=== PATIENT | female | born 1940 | race Caucasian/White ===

== ENCOUNTER → 2018-10-05 15:48 | Outpatient (CLI) | payer OTHER, SELFPAY ==
--- NOTE | 2018-10-05 | DI.MRI.S_ITS ---
PROCEDURE: MR CERVICAL SPINE WO CON INDICATIONS: Unspecified abnormalities of gait and mobility TECHNIQUE: Noncontrast sagittal T1 spin echo and T2 fast spin echo, sagittal STIR, foraminal oblique sagittal T2 fast spin echo, and axial gradient echo or T2 fast spin echo through the cervical spine. COMPARISON: [facility], MR, MR HEAD/BRAIN WO/W CON, 10/05/2018, 15:56. FINDINGS: Image quality: Excellent. Alignment and Curvature: There is straightening of the normal cervical lordosis. No focal AP alignment abnormality is seen. Bone Marrow: Marrow demonstrates normal overall signal. Spinal Cord: Visualized spinal cord has normal size and signal. No cerebellar tonsillar herniation. Paraspinous Soft Tissues: No paravertebral masses. Prevertebral soft tissues are normal in thickness. C2-C3: The disc height is well-preserved. Loss of disc signal is seen at this level. Mild to moderate disc osteophyte complex is seen. There is moderate left-sided and no right-sided neural foraminal narrowing seen. There is moderate right-sided and moderate to severe left-sided neural narrowing seen. Mild central canal narrowing is seen. C3-C4: The disc height is well-preserved. Loss of disc signal is seen at this level. A mild degree of generalized disc osteophyte complex is seen. Moderate to severe right-sided and moderate left-sided facet hypertrophy is seen. There is moderate to severe bilateral neural foraminal narrowing seen, left worse than right. Moderate central canal narrowing is seen. There is associated mass effect upon the ventral spinal cord. C4-C5: Mild loss of disc height is seen. Loss of disc signal is seen. Moderate disc osteophyte complex is seen, which is eccentric to the left. There is moderate right-sided and moderate to severe left-sided facet hypertrophy seen. Moderate to severe bilateral neural foraminal narrowing is seen, left worse than right. Moderate to severe central canal narrowing is seen, with mass effect upon the ventral spinal cord. C5-C6: Moderate loss of disc height is seen. Loss of disc signal is seen. At least moderate disc osteophyte complex is seen. Uncovertebral joint hypertrophy is seen at this level. Moderate facet joint hypertrophy is seen. There is moderate to severe bilateral neural foraminal narrowing seen at this level. Moderate to severe central canal narrowing is seen, with ventral cord flattening. C6-C7: Moderate loss of disc height is seen. Loss of disc signal is seen. Moderate disc osteophyte complex is seen, which is eccentric to the left. Uncovertebral joint hypertrophy is seen at this level. Mild to moderate facet hypertrophy is seen. There is moderate to severe bilateral neural foraminal narrowing seen, left worse than right. Mild to moderate central canal narrowing is seen. C7-T1: Mild loss of disc height is seen. Loss of disc signal is seen. Mild disc osteophyte complex is seen, which is eccentric to the left. There is mild left-sided and no right-sided neural foraminal narrowing seen. No significant central canal narrowing is seen. IMPRESSION: Multiple levels of cervical spine degenerative change are seen, which are most prominent at C5-C6. Dictated by: Miguelito Rodríguez M.D. on 10/05/2018 at 17:14 Approved by: Miguelito Rodríguez M.D. on 10/05/2018 at 17:19
--- NOTE | 2018-10-05 | DI.MRI.S_ITS ---
PROCEDURE: MR HEAD/BRAIN WO/W CON INDICATIONS: Unspecified abnormalities of gait and mobility TECHNIQUE: Noncontrast axial T1 spin echo, axial T2 fast spin echo, sagittal and axial FLAIR, coronal T2 fast spin echo, axial gradient echo, axial diffusion and ADC through the brain. After the administration of contrast, axial and coronal T1 spin echo with fat saturation through the brain. COMPARISON: [facility], MR, MR CERVICAL SPINE WO CON, 10/05/2018, 15:57. FINDINGS: Image quality: Excellent. CSF spaces: Basal cisterns are patent. No extra-axial fluid collections. Ventricles are normal in size and shape. Brain: No midline shift. No intracranial bleeds or masses. No abnormal intracranial enhancement. There is cerebral volume loss for age. There is periventricular white matter chronic small vessel ischemic change. The brainstem appears normal. Diffusion-weighted images demonstrate no acute ischemic insults. No chronic ischemic insults. Normal intravascular flow voids are present. Skull and face: Calvarial marrow is normal in signal. Orbits appear normal. Sinuses: Sinuses and mastoids appear clear. IMPRESSION: Note is made of age-appropriate brain parenchymal volume loss and chronic small vessel ischemic changes. No findings of acute or subacute infarction can be seen. No masses or abnormal enhancement can be seen. Dictated by: Miguelito Rodríguez M.D. on 10/05/2018 at 17:13 Approved by: Miguelito Rodríguez M.D. on 10/05/2018 at 17:14
== END ==
PROVIDERS: PCP Family Medicine; Visit Provider Psychiatry & Neurology Neurology
DX: R26.9 Unspecified abnormalities of gait and mobility (principal); M47.812 Spondylosis without myelopathy or radiculopathy, cervical region
CPT/HCPCS: 70553; 72141

== ENCOUNTER → 2019-03-08 09:44 | Outpatient (CLI) | payer OTHER, SELFPAY ==
--- NOTE | 2019-03-08 | DI.MRI.S_ITS ---
PROCEDURE: MR LUMBAR SPINE WO CON INDICATIONS: symptoms and signs involving the musculoskelatal TECHNIQUE: Noncontrast sagittal T1 spin echo and T2 fast echo, sagittal STIR, axial T1 and T2 fast spin echo through the lumbar spine. In cases with scoliosis, additional coronal T2 fast spin echo may be performed. COMPARISON: None. FINDINGS: Image quality: There are motion artifacts. Alignment and Curvature: There is grade 1 anterolisthesis of L2 on L3 and grade 1 retrolisthesis of L3 on L4. Bone Marrow: Marrow is of normal overall signal. No acute vertebral body compression fractures. Spinal Cord: Conus medullaris terminates at the T12-L1 level. Visualized cord demonstrates normal signal and size. Paraspinous Soft Tissues: No paravertebral masses. L1-L2: Preserved disc height. Mild disc desiccation. There is mild posterior disc bulge. The central canal is patent. No foraminal stenosis. No definitive nerve root impingement. L2-L3: Moderate loss of disc height and disc desiccation. There is diffuse circumferential disc bulge and large posterior disc osteophyte complex. Moderate bilateral facet arthropathy and mild hypertrophy of ligamentum flavum. The central canal is moderately narrowed. Mild/moderate bilateral foraminal stenosis. No definitive nerve root impingement. L3-L4: Severe loss of disc height and disc desiccation. There is diffuse posterior disc bulge and large posterior disc osteophyte complex. Superimposed right posterior paramedian disc protrusion. Moderate bilateral facet arthropathy and mild hypertrophy of ligamentum flavum. The central canal is moderately narrowed. Moderate to severe right and mild left foraminal stenosis. Probable right L4 nerve root impingement. L4-L5: Mild loss of disc height. Moderate disc desiccation. There is diffuse posterior disc bulge and large posterior disc osteophyte complex. Severe left and moderate right facet arthropathy. The central canal is mildly narrowed. Mild bilateral foraminal stenosis. No definitive nerve root impingement. L5-S1: Preserved disc height. Mild disc desiccation. There is mild posterior disc bulge. Severe bilateral facet arthropathy. The central canal is patent. No foraminal stenosis. No definitive nerve root impingement. IMPRESSION: 1. Multilevel degenerative disc disease and facet arthropathy in lumbar spine as described. 2. Moderate central canal stenosis at L2-L3 and L3-L4. 3. Multilevel foraminal stenosis as described. Dictated by: Arpan Lau M.D. on 03/08/2019 at 12:00 Approved by: Arpan Lau M.D. on 03/08/2019 at 12:09
== END ==
PROVIDERS: PCP Family Medicine; Visit Provider Physical Medicine & Rehabilitation
DX: R29.898 Other symptoms and signs involving the musculoskeletal system (principal); M51.36 Other intervertebral disc degeneration, lumbar region; M51.37 Other intervertebral disc degeneration, lumbosacral region; M47.816 Spondylosis without myelopathy or radiculopathy, lumbar region; M47.817 Spondylosis without myelopathy or radiculopathy, lumbosacral region; M48.061 Spinal stenosis, lumbar region without neurogenic claudication
CPT/HCPCS: 72148

== ENCOUNTER 2019-05-17 09:34 | Outpatient (CLI) | payer OTHER, SELFPAY ==
[2019-05-17] VITALS (8 sets, daily range): BP systolic 108–158; BP diastolic 62–74; PULSE 59–69; RESP 14–16; TEMP 35.9; O2SAT 93–99
--- NOTE | 2019-05-17 09:36 | DI.RAD.S_ITS ---
PROCEDURE: PAIN C/T INTERLAMINAR INJECT INDICATIONS: SPONDYLOSIS FINDINGS: Fluoroscopic spot filming was performed to verify placement of spinal needles at the C6-C7 level(s), as labeled on the films. Appropriate location(s) of the needle tip(s) was confirmed by injection of iodinated contrast. IMPRESSION: Fluoroscopy for pain management. Dictated by: Arpan Lau M.D. on 05/17/2019 at 11:17 Approved by: Arpan Lau M.D. on 05/17/2019 at 11:18
[2019-05-17] MEDS: MIDAZOLAM 5 MG/5 ML VIAL IV (10:35)
[2019-05-17] MEDS: IOPAMIDOL 15 ML VIAL 3 ML INJ (10:39)
[2019-05-17] MEDS: LIDOCAINE 1% 20 ML 5 ML INJ (10:40)
[2019-05-17] MEDS: DEXAMETHASONE 10 MG/ML VIAL 30 MG INJ (10:40)
--- NOTE | 2019-05-17 10:55 | PM.PROC.1 ---
Procedures Date/Time Date of procedure: 05/17/19 Time of procedure: 11:05 General Procedure description: PREOP DIAGNOSIS 1. CERVICAL STENOSIS, 2. CERVICAL HNP WITH UPPER EXTREMITY RADICULAR FEATURES, POST OP DIAGNOSIS 1. CERVICAL STENOSIS, 2. CERVICAL HNP WITH UPPER EXTREMITY RADICULAR FEATURES, PROCEDURES 1. FLUORSCOPICALLY GUIDED CONTRAST CONTROLLED INTERLAMINAR EPIDURAL STEROID INJECTION - C6/7 TL [facility] PHYSICIAN: Rashad Trammell, DO INDICATIONS Mandi is referred by Dr. Erickson for treatment of Cervical HNP with Upper Extremity Paresthesias. FINDINGS Cervical Stenosis due to disc deterioration and nerve root irritation and nerve root irritation DESCRIPTION OF PROCEDURE Fluoroscopically guided, contrast-controlled C6/7 translaminar epidural steroid injection with conscious sedation. Following review of allergy and review of potential side effects and complications, including, but not necessarily limited to, infection, allergic reaction, local tissue breakdown, temporary as well as permanent nerve injury, stroke, paralysis, and possible , the patient indicated that patient understood and agreed to proceed. An informed consent document was signed by the patient, witnessed by a nurse, and placed in the patient's chart. Additionally, other treatment options including modalities, medications, and physical therapy were reviewed with the patient. After review of previous anaesthesic history and IV conscious sedation the patient was deemed safe to proceed with todays procedure with IV conscious sedation as ASA class II designation. Safety time-out was performed to confirm patient ID, procedure to be performed and site of procedure. IV sedation was accomplished with a combination of 2mg of Versed administered by the RN after DO order, titrated to patient comfort during the course of the procedure while the patient remained responsive to all verbal commands. In the prone position, following sterile prep and drape of the cervical region, the C6/7 translaminar space was identified fluoroscopically. The skin was anesthetized via a 25-gauge 1.5-inch needle with 1% lidocaine solution. At this point, a 25-gauge, 2.5-inch short bevel spinal needle was atraumatically introduced and advanced under fluoroscopic guidance into epidural space at the C6/7 translaminar space. Depth was confirmed on lateral view. Radiological data, including multiple fluoroscopic views of the cervical spine, reveal a spinal needle at the C6/7 translaminar space. Lateral views then show placement of the needle in the epidural space. Subsequent views show contrast material flowing superiorly and inferiorly in the epidural space. DSA fluoroscopy with live contrast injection, once again, confirmed no vascular or intrathecal uptake. At this point, using loss of resistance technique with saline and air, the epidural space was entered. Following negative aspiration, injection of approximately 1.5 cc of Isovue-200 with live fluoroscopy in the AP view confirmed epidural flow in the epidural space without vascular or intrathecal uptake observed. Subsequently, a test dose of 1 cc of 1% lidocaine solution was injected and patient was observed for two minutes without signs or symptoms of complications, including abdominal pain, shortness of breath, bilateral upper or lower extremity weakness, nausea and vomiting, prior to steroid injection. At this point, 2cc or 20mg of dexamethasone was then injected without incident. The patient tolerated the procedure well without signs or symptoms of complications prior to being transferred to the recovery area for further monitoring, The patient was then transferred to the recovery area where they were observed for an appropriate period of time after the injection. The patient reported a VAS score of 6 prior to the procedure and a post-procedure VAS of 0. Total Fluoroscopy Time: 37.0 seconds Total Conscious Time: 24min POST OP INSTRUCTIONS The patient was provided a Pain Log to continue to record their response to the target-specific procedure prior to follow-up visit with the referring provider. Additionally, specific post-injection care instructions and a contact number to our office were provided if concerns arise regarding possible complications associated with the procedure are suspected. Rashad Trammell, Complications: none
--- NOTE | 2019-05-17 10:56 | PC.NURSE ---
DI note: Received patient post procedure, awake and calm. Up out of WC to chair in stable condition.
--- NOTE | 2019-05-17 17:18 | PC.NURSE ---
Late entry--Post procedure transfer note: Time out at 1033. Patient medicated per providers orders. Patient tolerated procedure well with minimal discomfort. VSS and O2 Sat stable througout. Able to sit up and transfer to wheelchair with stand by assist. Hand off report given to Efe Hernández RN. Transferred from w/c to recliner independently. Pain level 0/10
== END 2019-05-17 11:30 | disposition home or self-care (01) ==
PROVIDERS: PCP Family Medicine; Visit Provider Physical Medicine & Rehabilitation
DX: M48.02 Spinal stenosis, cervical region (principal); M50.123 Cervical disc disorder at C6-C7 level with radiculopathy; R20.2 Paresthesia of skin
CPT/HCPCS: 62321; 99152; J1100; J2250; J3010

== ENCOUNTER → 2019-07-05 15:02 | Outpatient (CLI) | payer MEDICARE, SELFPAY ==
--- NOTE | 2019-07-05 | DI.MRI.S_ITS ---
PROCEDURE: MR CERVICAL SPINE WO CON INDICATIONS: Spinal stenosis, cervical region TECHNIQUE: Noncontrast sagittal T1 spin echo and T2 fast spin echo, sagittal STIR, foraminal oblique sagittal T2 fast spin echo, and axial gradient echo or T2 fast spin echo through the cervical spine. COMPARISON: [facility], MR, MR CERVICAL SPINE WO CON, 10/05/2018, 15:57. FINDINGS: Image quality: Excellent. Alignment and Curvature: There is trace C4-C5 anterolisthesis. Bone Marrow: Mild reactive endplate changes noted adjacent to the C5-C6 disc. Spinal Cord: Visualized spinal cord has normal size and signal. No cerebellar tonsillar herniation. Paraspinous Soft Tissues: No paravertebral masses. Prevertebral soft tissues are normal in thickness. C2-C3: Loss of disc signal. Mild right and moderate left facet hypertrophy. No central stenosis. Moderate right and severe left neural foraminal narrowing with compression of the exiting left C3 nerve root. C3-C4: Loss of disc signal and slight loss of disc height. Mild, diffuse disc bulge. Severe bilateral facet hypertrophy. Moderate right and severe left neural foraminal narrowing with compression of the exiting left C4 nerve root. C4-C5: Loss of disc signal. Mild to moderate diffuse disc bulge. Moderate narrowing of the central canal. Mild right and moderate left facet hypertrophy. Moderate bilateral uncovertebral joint hypertrophy. Severe bilateral neural foraminal narrowing with compression of the exiting C5 nerve roots. C5-C6: Loss of disc signal and height. Moderate, diffuse disc bulge. Severe narrowing of the central canal with slight compression of the cervical spinal cord. Mild bilateral facet hypertrophy. Moderate bilateral uncovertebral joint hypertrophy. Severe bilateral neural foraminal narrowing with compression of the exiting C6 nerve roots. C6-C7: Loss of disc signal. Mild, diffuse disc bulge. Mild narrowing of the central canal. Mild bilateral facet hypertrophy. Mild bilateral uncovertebral joint hypertrophy. Severe bilateral neural foraminal narrowing with compression of the exiting C7 nerve roots. C7-T1: Loss of disc signal. Minimal, diffuse disc bulge. No central stenosis. No neural foraminal narrowing. No neural compression. IMPRESSION: 1. Multilevel degenerative disc disease. 2. Multilevel facet and uncovertebral arthropathy. 3. Severe C5-C6 Central canal narrowing with slight compression of the cervical spinal cord. 4. Severe left C2-C3 and C3-C4 neural foraminal narrowing with compression of the exiting left C3 nerve root and the exiting left C4 nerve root. Severe bilateral C4-C5, C5-C6 and C6-C7 neural foraminal narrowing with compression of the exiting bilateral C5 nerve roots, exiting bilateral C6 nerve roots and exiting bilateral C7 nerve roots. Dictated by: Dagmar Lagunas MD, PhD on 07/05/2019 at 17:09 Approved by: Dagmar Lagunas MD, PhD on 07/05/2019 at 17:43
== END ==
PROVIDERS: PCP Family Medicine; Visit Provider Neurological Surgery
DX: M48.02 Spinal stenosis, cervical region (principal); M50.31 Other cervical disc degeneration, high cervical region; M47.812 Spondylosis without myelopathy or radiculopathy, cervical region
CPT/HCPCS: 72141

== ENCOUNTER 2019-08-14 09:30 | Outpatient (CLI) | payer MEDICARE, SELFPAY ==
[2019-08-14] VITALS (8 sets, daily range): BP systolic 112–169; BP diastolic 63–100; PULSE 54–67; RESP 16–18; TEMP 36.5; O2SAT 94–99
--- NOTE | 2019-08-14 09:32 | DI.RAD.S_ITS ---
PROCEDURE: PAIN L/S TRANSFORAMINAL INJECT INDICATIONS: INTERVERTEBRAL DISC DISPLACEMENT FINDINGS: Fluoroscopic spot filming was performed to verify placement of spinal needles at the L3-L4 level(s), as labeled on the films. Appropriate location(s) of the needle tip(s) was confirmed by injection of iodinated contrast. Dictated by: Keith Casillas M.D. on 08/14/2019 at 12:07 Approved by: Keith Casillas M.D. on 08/14/2019 at 12:11
[2019-08-14] MEDS: fentaNYL 100 MCG/2 ML INJ 50 MCG IV (10:26)
[2019-08-14] MEDS: MIDAZOLAM 5 MG/5 ML VIAL IV (10:26)
[2019-08-14] MEDS: DEXAMETHASONE 10 MG/ML VIAL 20 MG INJ (10:31)
[2019-08-14] MEDS: BETAMETHASONE 30 MG/5 ML MDV 6 MG INJ (10:31)
[2019-08-14] MEDS: IOPAMIDOL 15 ML VIAL 3 ML INJ (10:31)
--- NOTE | 2019-08-14 10:35 | PM.PROC.1 ---
Procedures Date/Time Date of procedure: 08/14/19 Time of procedure: 10:35 General Procedure description: PROVIDER: Rashad Trammell DO Operative Note PREOP DIAGNOSIS 1. FORAMINAL STENOSIS WITH LE SYMPTOMS, POST OP DIAGNOSIS 1. FORAMINAL STENOSIS WITH LE SYMPTOMS, PROCEDURES 1. FLUOROSCOPICALLY GUIDED CONTRAST CONTROLLED TRANSFORAMINAL EPIDURAL STEROID INJECTION - RIGHT L3/4 TFESI SURGEON: Rashad Trammell, INDICATIONS Mandi is referred by Dr. Erickson for treatment of Foraminal Stenosis with right LE Symptoms FINDINGS Foraminal Nerve Root Compression secondary to disc disease and facet hypertrophy DESCRIPTION OF PROCEDURE Following review of allergy and review of potential side effects and complications, including, but not necessarily limited to, infection, allergic reaction, local tissue breakdown, stroke, temporary or permanent nerve injury, paralysis, and possible , the patient indicated that the patient understood and agreed to proceed. An informed consent document was signed by the patient, witnessed by a nurse, and placed in the patient's chart. Additionally, other treatment options including medications, modalities, and physical therapy were reviewed with the patient. After review of previous anaesthesic history and IV conscious sedation the patient was deemed safe to proceed with todays procedure with IV conscious sedation as ASA class II designation. Safety time-out was performed to confirm patient ID, procedure to be performed and site of procedure. IV sedation was accomplished with a combination of 2mg of Versed and 50mcg of Fentanyl was administered by the RN after DO order, titrated to patient comfort during the course of the procedure while the patient remained responsive to all verbal commands In the prone position following sterile prep and drape of the lumbar region, the right L3/4 posterior neuroforamen was identified fluoroscopically. The skin was anesthetized via a 25-gauge 1.5-inch needle with 1% lidocaine solution. At this point, a 25-gauge 3.5-inch spinal needle was atraumatically introduced and advanced under fluoroscopic guidance through the posterior right L3/4 neuroforamen to approximately the anterior aspect of the canal. Depth was confirmed on lateral view. Following negative aspiration, injection of approximately 1.5 cc of Isovue 200 under live fluoroscopy in the AP view confirmed excellent flow along the nerve root, into the epidural space without vascular or intrathecal uptake observed Radiological data, including multiple fluoroscopic views of the lumbosacral spine, reveal a spinal needle at the right L3/4 posterior neuroforamen. Subsequent views show flow of contrast material flowing superiorly and inferiorly along the nerve root confirming epidural flow. Subsequently, a test dose of 1.5 cc of 0.25% marcaine solution was administered and patient was observed for two minutes for signs or symptoms of complications, including abdominal pain, shortness of breath, bilateral upper or lower extremity weakness, nausea and vomiting, prior to steroid injection. At this point, a total of 3cc or 20mg of dexamethasone and 6mg of betamethasone was injected without incident. The patient tolerated the procedure well without signs or symptoms of complications prior to transfer to the recovery area continued monitoring without incident. The patient was then transferred to the recovery area where they were observed for an appropriate time after the injection. The patient reported a VAS score of 7 prior to the procedure and a post-procedure VAS of 0. Total Fluoroscopy Time: 8 seconds Total Conscious Sedation Time: 24 min POST OP INSTRUCTIONS The patient was provided a Pain Log to continue to record their response to the target-specific procedure prior to follow-up visit with their referring physician. Additionally, specific post-injection care instructions and a contact number to our office were provided if concerns arise regarding possible complications associated with the procedure are suspected. Rashad Trammell, Complications: none
--- NOTE | 2019-08-14 10:48 | PC.NURSE ---
ACCEPTED CARE OF PT IN POST PROC AREA IN STABLE CONDITION. AT 1047.
--- NOTE | 2019-08-14 11:30 | PC.NURSE ---
at 1035 able to sit,stand,transfer self to w/c with 2 assist, pain free, transfer care to tina swanson.
== END 2019-08-14 11:52 | disposition home or self-care (01) ==
LOC: RAD 09:31
PROVIDERS: PCP Family Medicine; Referring Provider Physical Medicine & Rehabilitation; Visit Provider Physical Medicine & Rehabilitation
DX: M48.061 Spinal stenosis, lumbar region without neurogenic claudication (principal); M51.16 Intervertebral disc disorders with radiculopathy, lumbar region
CPT/HCPCS: 64483; 99152; J0702; J1100; J2250; J3010

== ENCOUNTER → 2020-07-04 09:44 | Outpatient (CLI) | payer MEDICARE, SELFPAY ==
--- NOTE | 2020-07-04 09:46 | DI.RAD.S_ITS ---
PROCEDURE: XR LUMBAR SPINE MIN 4V INDICATIONS: update imaging TECHNIQUE: 4 views of the lumbar spine were acquired. COMPARISON: None. FINDINGS: Bones: 5 nonrib-bearing vertebrae are present. There is normal bony alignment. No vertebral body compression fractures. No suspicious bony lesions. Note is made of moderately severe L3-4 degenerative disc disease and moderate L2-3 such change. There is mild degenerative disc disease above and below these levels. Soft tissues: Overlying bowel gas pattern is normal. No suspicious soft tissue calcifications. Oblique images: No pars defects. IMPRESSION: Overall there is moderate to moderately severe degenerative disc disease over the middle 3rd of the LS spine, and facet osteoarthritis becomes progressively more prominent from L3 inferiorly to the degree that spinal and foraminal stenosis likely is present at least at L2-L3 and L3-L4 and also possibly to a mild degree L5-S1. Dictated by: Armin Siegel M.D. on 07/04/2020 at 11:12 Approved by: Armin Siegel M.D. on 07/04/2020 at 11:13
== END ==
PROVIDERS: PCP Family Medicine; Referring Provider Physical Medicine & Rehabilitation; Visit Provider Physical Medicine & Rehabilitation
DX: M51.26 Other intervertebral disc displacement, lumbar region (principal); M51.36 Other intervertebral disc degeneration, lumbar region; M47.816 Spondylosis without myelopathy or radiculopathy, lumbar region; M47.812 Spondylosis without myelopathy or radiculopathy, cervical region; I44.7 Left bundle-branch block, unspecified; Z95.0 Presence of cardiac pacemaker
CPT/HCPCS: 72110; 99214

== ENCOUNTER 2020-07-24 13:30 | Outpatient (CLI) | payer MEDICARE, SELFPAY ==
[2020-07-24] VITALS (8 sets, daily range): BP systolic 113–194; BP diastolic 57–83; PULSE 59–73; RESP 13–21; TEMP 36.1; O2SAT 92–98
--- NOTE | 2020-07-24 13:33 | DI.RAD.S_ITS ---
PROCEDURE: PAIN L/S FACET INJ/BLK 1ST VINNY COMPARISON: [facility], , PAIN L/S TRANSFORAMINAL INJECT, 08/14/2019, 10:26. INDICATIONS: SPONDYLOSIS FINDINGS: Fluoroscopic spot filming was performed to verify placement of spinal needles at the L2-L3, L3-L4, and L4-L5 levels on both sides, as labeled on the films. Appropriate location of the needle tips was confirmed by injection of iodinated contrast. IMPRESSION: Intraprocedural examination within normal limits. Dictated by: Miguelito Rodríguez M.D. on 07/24/2020 at 15:01 Approved by: Miguelito Rodríguez M.D. on 07/24/2020 at 15:04
[2020-07-24] MEDS: MIDAZOLAM 5 MG/5 ML VIAL IV (14:22)
[2020-07-24] MEDS: fentaNYL 100 MCG/2 ML INJ 50 MCG IV (14:22)
[2020-07-24] MEDS: IOPAMIDOL 15 ML VIAL 3 ML INJ (14:28)
[2020-07-24] MEDS: BUPIVACAINE 0.5% (PF) VIAL 5 ML INJ (14:28)
[2020-07-24] MEDS: LIDOCAINE 1% 20 ML 10 ML INJ (14:28)
[2020-07-24] MEDS: BETAMETHASONE 30 MG/5 ML MDV 12 MG INJ (14:29)
--- NOTE | 2020-07-24 14:40 | P.PCN_ITS ---
Date/Time/Diagnoses Date of procedure: 07/24/20 Time of procedure: 14:40 Pre-procedure diagnosis: 1. FACET ARTHROPATHY 2. AXIAL LBP 3. MULTILEVEL DDD Post-procedure diagnosis: same Procedure Notes Procedure: 1. FLUORSCOPICALLY GUIDED CONTRAST CONTROLLED FACET JOINT INJECTIONS BILATERAL L2/3, L3/4, L4/5 Indications: Mandi is referred by Dr. Erickson for treatment of Axial LBP Physician: Rashad Trammell Total Fluoroscopy time (seconds): 15 Total sedation minutes: 12 Complications: none Procedure in detail & Post-procedure care: FINDINGS Multilevel Facet Arthropathy with Clinically significant axial LBP DESCRIPTION OF PROCEDURE Fluoroscopically guided, contrast-controlled bilateral L2/3, L3/4, L4/5 facet joint injections. Following review of allergy and review of potential side effects and complications, including, but not necessarily limited to, infection, allergic reaction, local tissue breakdown, stroke, temporary or permanent nerve injury, paralysis, and possible , the patient indicated that the patient understood and agreed to proceed. An informed consent document was signed by the patient, witnessed by a nurse, and placed in the patient's chart. Additionally, other treatment options including medications, modalities, and physical therapy were reviewed with the patient. After review of previous anaesthesic history and IV conscious sedation the patient was deemed safe to proceed with today's procedure with IV conscious sedation as ASA class II designation. Safety time-out was performed to confirm patient ID, procedure to be performed and site of procedure. IV sedation was accomplished with a combination of 3mg of Versed and 50mcg of Fentanyl was administered by the RN after DO order, titrated to patient comfort during the course of the procedure while the patient remained responsive to all verbal commands. In the prone position, following sterile prep and drape of the lumbar region, the posterior aspect of the L2/3, L3/4, L4/5 facet joints were identified fluoroscopically. The skin was anesthetized via a 25-gauge 1.5-inch needle with 1% lidocaine solution into the corresponding facet joints. At this point, a 22- gauge 3.5-inch spinal needle was atraumatically introduced and advanced under fluoroscopic guidance into the corresponding facet joints. Following negative aspiration, injections of approximately 0.2cc of Isovue 200 confirmed interarticular placement without vascular uptake. The identical procedure was then performed at the L2/3, L3/4, L4/5 facet joints on the left. Radiological data, including multiple fluoroscopic views of the lumbosacral spine, reveal a spinal needle at the L2/3, L3/4, L4/5 facet joints bilaterally. Subsequent views show flow of contrast material both superiorly and inferiorly within the joint space without vascular or intrathecal uptake. At this point, a total of 0.5cc including a mixture of 0.25cc Marcaine and 0.25cc betamethasone was injected without complication into each of the corresponding facet joints. The patient tolerated the procedure well without signs or symptoms of complications prior to transfer to the recovery area continued monitoring without incident. The patient was then transferred to the recovery area where they were observed for an appropriate period of time after the injection. The patient reported a VAS score of 7 prior to the procedure and a post-procedure VAS of 0. POST OP INSTRUCTIONS The patient was provided a Pain Log to continue to record their response to the target-specific procedure prior to follow-up visit with their referring physician. Additionally, specific post-injection care instructions and a contact number to our office were provided if concerns arise regarding possible complications associated with the procedure are suspected.
== END 2020-07-24 15:00 | disposition home or self-care (01) ==
PROVIDERS: PCP Family Medicine; Referring Provider Physical Medicine & Rehabilitation; Visit Provider Physical Medicine & Rehabilitation
DX: M47.816 Spondylosis without myelopathy or radiculopathy, lumbar region (principal); M51.26 Other intervertebral disc displacement, lumbar region
CPT/HCPCS: 64493; 64494; 64495; 99152; J0702; J2250; J3010

== ENCOUNTER 2021-04-09 11:06 | Outpatient (CLI) | payer MEDICARE, SELFPAY ==
[2021-04-09] VITALS (12 sets, daily range): BP systolic 100–206; BP diastolic 56–93; PULSE 57–87; RESP 11–30; TEMP 36.8; O2SAT 93–99
--- NOTE | 2021-04-09 11:07 | DI.RAD.S_ITS ---
PROCEDURE: PAIN L/S FACET INJ/BLK 1ST VINNY COMPARISON: [facility], , PAIN L/S FACET INJ/BLK 1ST VINNY, 07/24/2020, 14:26. INDICATIONS: SPONDYLOSIS IMPRESSION: Fluoroscopic spot filming was performed to verify placement of a spinal needles on both sides at the L2, L3, L4, and L5 levels, as labeled on the films. Appropriate location of the needle tips was confirmed by injection of iodinated contrast. IMPRESSION: Intraprocedural examination within normal limits. Dictated by: Miguelito Rodríguez M.D. on 04/09/2021 at 11:35 Approved by: Miguelito Rodríguez M.D. on 04/09/2021 at 11:35
[2021-04-09] MEDS: MIDAZOLAM 5 MG/5 ML VIAL IV (11:44)
[2021-04-09] MEDS: fentaNYL 100 MCG/2 ML INJ 50 MCG IV (11:44)
[2021-04-09] MEDS: IOPAMIDOL 15 ML VIAL 3 ML INJ (11:53)
[2021-04-09] MEDS: BUPIVACAINE 0.5% (PF) VIAL 5 ML INJ (11:54)
[2021-04-09] MEDS: LIDOCAINE 1% 20 ML 10 ML INJ (11:55)
--- NOTE | 2021-04-09 12:07 | PM.PROC.IR.1 ---
Date/Time/Diagnoses Date of procedure: 04/09/21 Time of procedure: 12:07 Pre-procedure diagnosis: 1. FACET ARTHROPATHY Post-procedure diagnosis: same Procedure Notes Procedure: 1. BILATERAL L2, L3, L4 AND L5 DIAGNOSTIC MB BLOCKS Indications: Mandi is referred by Dr. Erickson for treatment of Bilateral Axial LBP. Physician: Rashad Trammell Total Fluoroscopy time (seconds): 13 Total sedation minutes: 17 Complications: none Procedure in detail & Post-procedure care: DESCRIPTION OF PROCEDURE Fluoroscopically guided, contrast-controlled bilateral L2, L3, L4 AND L5 medial branch blocks with 0.5cc of 0.5% Marcaine. Following review of allergy and review of potential side effects and complications, including, but not necessarily limited to, infection, allergic reaction, local tissue breakdown, nerve injury, paralysis, stroke and possible , the patient indicated that the patient understood and agreed to proceed. An informed consent document was signed by the patient, witnessed by a nurse, and placed in the patient's chart. After review of previous anaesthesic history and IV conscious sedation the patient was deemed safe to proceed with today's procedure with IV conscious sedation as ASA class II designation. Safety time-out was performed to confirm patient ID, procedure to be performed and site of procedure. IV sedation was accomplished with a combination of 4mg of Versed and 50mcg of Fentantyl was administered by the RN after DO order, titrated to patient comfort during the course of the procedure while the patient remained responsive to all verbal commands In the prone position, following sterile prep and drape of the lumbar region, the right L2, L3, L4 AND L5 anatomical location of the medial branch of the dorsal ramus was identified fluoroscopically. Subsequently an anesthetic skin wheal using 1% lidocaine solution was initiated at each of the anatomical spots. Subsequently then a 22-gauge 3.5-inch spinal needle was atraumatically introduced and advanced under fluoroscopic guidance at each of the corresponding sites at the right L2, L3, L4 and L5 MB. After negative aspiration, 0.2cc of Isovue 200 was injected, confirming placement without vascular or intrathecal uptake. Subsequently then 0.5cc of 0.5% Marcaine solution was injected at each of the corresponding sites at the right L2,L3, L4 and L5 medial branch locations. The identical procedure was replicated on the left. The patient tolerated the procedure well without signs or symptoms of complications. The patient tolerated the procedure well without signs or symptoms of complications prior to transfer to the recovery area continued monitoring without incident. Post-procedure, the patient was monitored initiating provocative activities to measure the amount of relief from block of the facetogenic pain. The patient reported a VAS of 7 prior to the procedure and a post-procedure VAS of 1. It has been a pleasure to assist in the diagnostic and therapeutic care of your patient. POST OP INSTRUCTIONS The patient was provided with a Pain Log to complete over the next several hours and subsequent days prior to the patient's follow up with the ordering physician. If the patient has cake batter mixer relief to the solution applied, then they may be a candidate for medial branch rhizotomy. The patient is aware, was provided, once again, with a Pain Log and will follow up with the referring physician for review and clinical correlation
== END 2021-04-09 13:00 | disposition home or self-care (01) ==
PROVIDERS: PCP Family Medicine; Referring Provider Physical Medicine & Rehabilitation; Visit Provider Physical Medicine & Rehabilitation
DX: M47.816 Spondylosis without myelopathy or radiculopathy, lumbar region (principal); M54.59 Other low back pain
CPT/HCPCS: 64493; 64494; 64495; 99152; J2250; J3010

== ENCOUNTER 2021-07-09 10:25 | Outpatient (CLI) | payer MEDICARE, SELFPAY ==
[2021-07-09] VITALS (13 sets, daily range): BP systolic 109–180; BP diastolic 57–98; PULSE 49–60; RESP 13–20; TEMP 36.7; O2SAT 92–100
--- NOTE | 2021-07-09 10:27 | DI.RAD.S_ITS ---
PROCEDURE: PAIN L/S MED/LAT N RFA BILAT INDICATIONS: SPONDYLOSIS COMPARISON: [facility], XA, PAIN L/S FACET INJ/BLK 1ST VINNY, 04/09/2021, 11:49. [facility], XA, PAIN L/S FACET INJ/BLK 1ST VINNY, 07/24/2020, 14:26. FINDINGS: Fluoroscopic spot filming was performed to verify placement of spinal needles on on both sides at the L2, L3, L4, and L5, as labeled on the films. IMPRESSION: Intraprocedural examination within normal limits. Dictated by: Miguelito Rodríguez M.D. on 07/09/2021 at 12:42 Approved by: Miguelito Rodríguez M.D. on 07/09/2021 at 12:43
[2021-07-09] MEDS: fentaNYL 100 MCG/2 ML INJ 50 MCG IV (11:44)
[2021-07-09] MEDS: BUPIVACAINE 0.5% (PF) VIAL 5 ML INJ (11:49)
[2021-07-09] MEDS: LIDOCAINE 1% (PF) 5 ML INJ (11:49)
[2021-07-09] MEDS: MIDAZOLAM 5 MG/5 ML VIAL IV (12:10)
--- NOTE | 2021-07-09 12:39 | P.PCN_ITS ---
Date/Time/Diagnoses Date of procedure: 07/09/21 Time of procedure: 12:39 Pre-procedure diagnosis: 1. RECALCITRANT FACET ARTHROPATHY This procedure is found to meet the Governor's proclamation 20-24.2 regarding non urgent procedures. This patient meets multiple criteria for the procedure including continuing or worsening of significant or severe pain, combined with further deterioration of the patient's condition or overall health as well as delay in treatment would be expected to result in less positive ultimate medical outcome. Therefore the decision to perform the procedure in an outpatient hospital setting is found to be in accordance with guidelines of the proclamation. Post-procedure diagnosis: same Procedure Notes Procedure: 1. BILATERAL L2, L3, L4 AND L5 MEDIAL BRANCH RADIOFREQUENCY NEUROTOMY Indications: Mandi is referred by Dr. Erickson for treatment of facet arthropathy. Physician: Rashad Trammell Total Fluoroscopy time (seconds): 20 Total sedation minutes: 46 Complications: none Procedure in detail & Post-procedure care: DESCRIPTION OF PROCEDURE Bilateral L2, L3, L4 and L5 medial branch radiofrequency neurotomy The patient is well known to this clinic having undergone previous facet injections with good but temporary relief. The patient has experienced appropriate, concordant relief with previous facet and median branch blocks but the patient's pain has been recalcitrant to further conservative measures. Therefore, based upon the patient's relief and persistent symptoms, the patient is considered an appropriate candidate for facet rhizotomy. All of the patient's questions regarding the risks versus benefits of the procedure, including, but not limited to, bleeding, infection, temporary as well as lasting nerve injury, paralysis, stroke, and , as well treatment alternatives were answered to satisfaction. After obtaining informed consent, denial of pertinent drug allergies, as well as being made aware of the potential risks of bleeding, infection, spinal cord trauma, paralysis, temporary and permanent nerve damage, seizure, stroke, and possible , the patient was brought to the fluoroscopy suite and positioned prone on the fluoroscopy table. The lumbar region was prepped with Betadine and covered with a fenestrated drape in the usual sterile fashion. Appropriate monitors applied including pulse oximeter, pulse, and blood pressure for regular monitoring throughout the procedure. After review of previous anaesthesic history and IV conscious sedation the patient was deemed safe to proceed with today's procedure with IV conscious sedation as ASA class II designation. Safety time-out was performed to confirm patient ID, procedure to be performed and site of procedure. IV sedation was accomplished with a combination of 2mg of Versed and 50mcg of Fentanyl administered by the RN after DO order, titrated to patient comfort during the course of the procedure while the patient remained responsive to all verbal commands. After local infiltration using 1% lidocaine, under fluoroscopic guidance, a 10- cm RF insulated needle with a 10-mm active tip was positioned parallel to the junction of the right the superior articulating process where the L5 medial branch resides. Needle placement was confirmed with motor stimulation of .5v on the right which produced local stimulation without radicular component. The stimulation was then increased to 2v with, once again, only local multifidus stimulation without radicular component. The needle was then removed and the identical procedure was performed along the length of the right L4 medial branch with motor stimulation at .7v on the right. The identical procedure was once again performed along the length of the right L3 and medial branch with motor stimulation of .5v on the right. The identical procedure was once again performed along the length of the right L2 and medial branch with motor stimulation of .5v on the right.The medial branches were then anesthetised with 0.5% marcaine. This was then followed by two discreet lesions performed at 80 degrees Celsius for 90 seconds each. The identical procedures were repeated on the left. The patient tolerated the procedure well without signs or symptoms of complications prior to transfer to the recovery area continued monitoring without incident. The patient was then transferred to the recovery area where they were observed for an appropriate period of time after the injection. The patient reported a VAS score of 7 prior to the procedure and a post-procedure VAS of 0. POST OP INSTRUCTIONS The patient was provided a Pain Log to continue to record the patient's response to the target-specific procedure prior to the patient's follow-up visit with the referring physician. Additionally, specific post-injection care instructions and a contact number to our office were provided if concerns arise regarding possible complications associated with the procedure are suspected.
== END 2021-07-09 13:03 | disposition home or self-care (01) ==
LOC: RAD 10:26
PROVIDERS: PCP Family Medicine; Referring Provider Physical Medicine & Rehabilitation; Visit Provider Physical Medicine & Rehabilitation
DX: M47.816 Spondylosis without myelopathy or radiculopathy, lumbar region (principal)
CPT/HCPCS: 64635; 64636; 99152; 99153; J2250; J3010

== ENCOUNTER → 2021-09-23 12:10 | Outpatient (CLI) | payer MEDICARE, SELFPAY ==
--- NOTE | 2021-09-23 12:11 | DI.RAD.S_ITS ---
PROCEDURE: XR LUMBAR SPINE MIN 4V INDICATIONS: INCREASED BACK PAIN TECHNIQUE: 5 views of the lumbar spine were acquired, including bilateral oblique views. COMPARISON: [facility], , XR LUMBAR SPINE MIN 4V, 07/04/2020, 9:45. FINDINGS: Bones: 5 nonrib-bearing vertebrae are present. There is loss of normal lumbar lordosis. Mild grade 1, roughly 5 mm of retrolisthesis of L3 on L4. Multilevel disc space narrowing and endplate osteophyte formation, worst at L2-L3 and L3-L4, indicating degenerative disc disease. Moderate facet hypertrophy throughout the mid and lower lumbar spine. No vertebral body compression fractures. No suspicious bony lesions. Soft tissues: Overlying bowel gas pattern is normal. No suspicious soft tissue calcifications. IMPRESSION: 1. Multilevel degenerative disc and facet disease. 2. No fracture 3. Spondylolisthesis at L3-L4. Dictated by: Jim Montero M.D. on 09/23/2021 at 14:32 Approved by: Jim Montero M.D. on 09/23/2021 at 14:33
== END ==
PROVIDERS: PCP Family Medicine; Referring Provider Physical Medicine & Rehabilitation; Visit Provider Physical Medicine & Rehabilitation
DX: M51.36 Other intervertebral disc degeneration, lumbar region (principal); M47.816 Spondylosis without myelopathy or radiculopathy, lumbar region; M51.26 Other intervertebral disc displacement, lumbar region; M43.16 Spondylolisthesis, lumbar region; M47.12 Other spondylosis with myelopathy, cervical region; M47.22 Other spondylosis with radiculopathy, cervical region; F41.1 Generalized anxiety disorder; Z95.0 Presence of cardiac pacemaker
CPT/HCPCS: 72110; 99215

== ENCOUNTER 2022-09-30 10:54 | Outpatient (CLI) | payer MEDICARE, SELFPAY ==
[2022-09-30] VITALS (9 sets, daily range): BP systolic 125–160; BP diastolic 64–78; PULSE 53–65; RESP 16–22; TEMP 36.3; O2SAT 96–100
--- NOTE | 2022-09-30 10:56 | DI.RAD.S_ITS ---
PROCEDURE: PAIN L INTERLAMINAR/CAUDAL INJ INDICATIONS: SPONDYLOSIS COMPARISON: [facility], XA, PAIN L/S MED/LAT N RFA BILAT, 07/09/2021, 12:49. [facility], CR, XR LUMBAR SPINE MIN 4V, 09/23/2021, 12:06. FINDINGS: Fluoroscopic spot filming was performed to verify placement of a spinal needle at the L3-L4 level, as labeled on the films. Appropriate location of the needle tip was confirmed by injection of iodinated contrast. IMPRESSION: Intraprocedural examination within normal limits. Dictated by: Miguelito Rodríguez M.D. on 09/30/2022 at 13:58 Approved by: Miguelito Rodríguez M.D. on 09/30/2022 at 13:58
[2022-09-30] MEDS: MIDAZOLAM 2 MG/2 ML VIAL IV (12:20)
[2022-09-30] MEDS: BUPIVACAINE 0.25% (PF) VIAL 2 ML INJ (12:21)
[2022-09-30] MEDS: DEXAMETHASONE 10 MG/ML VIAL 20 MG INJ (12:22)
[2022-09-30] MEDS: BETAMETHASONE 30 MG/5 ML MDV 6 MG INJ (12:22)
[2022-09-30] MEDS: IOPAMIDOL 15 ML VIAL 3 ML INJ (12:22)
--- NOTE | 2022-09-30 12:32 | P.PCN_ITS ---
Date/Time/Diagnoses Date of procedure: 09/30/22 Time of procedure: 12:32 Pre-procedure diagnosis: 1. HNP WITH RADICULAR FEATURES, 2. MULTILEVEL CENTRAL STENOSIS, Post-procedure diagnosis: same Procedure Notes Procedure: 1. FLUOROSCOPICALLY GUIDED CONTRAST CONTROLLED INTERLAMINAR EPIDURAL STEROID INJECTION - L3/4 Indications: Mandi is referred by Dr. Valerio for treatment of Bilateral Foraminal Stenosis L>R LE symptoms. Physician: Rashad Trammell Total Fluoroscopy time (seconds): 9 Total sedation minutes: 12 Complications: none Procedure in detail & Post-procedure care: FINDINGS Multilevel Central Spinal Stenosis with Nerve Root Compression DESCRIPTION OF PROCEDURE Fluoroscopically guided, contrast-controlled L3/4 translaminar epidural steroid injection. Following review of allergy and review of potential side effects and complications, including, but not necessarily limited to, infection, allergic reaction, local tissue breakdown, temporary as well as permanent nerve injury, paralysis, stroke and possible , the patient indicated that the patient understood and agreed to proceed. An informed consent document was signed by the patient, witnessed by a nurse, and placed in the patient's chart. Additionally, other treatment options including modalities, medications, and physical therapy were reviewed with the patient. After review of previous anaesthesic history and IV conscious sedation the patient was deemed safe to proceed with today?s procedure with IV conscious sedation as ASA class II designation. Safety time-out was performed to confirm patient ID, procedure to be performed and site of procedure. IV sedation was accomplished with a combination of 2mg of Versed was administered by the RN after DO order, titrated to patient comfort during the course of the procedure while the patient remained responsive to all verbal commands. In the prone position, following sterile prep and drape of the lumbar region, the L3/4 translaminar space was identified fluoroscopically. The skin was anesthetized via a 25-gauge, 1.5-inch needle with 1% lidocaine solution. At this point, a 22-gauge short bevel spinal needle was atraumatically introduced and advanced under fluoroscopic guidance into the region of the L3/4 translaminar space. Depth was confirmed on lateral view. Radiological data, including multiple fluoroscopic views of the lumbar spine, reveal a spinal needle at the L3/4 translaminar space. Lateral views then show placement of the needle in the epidural space. Subsequent views show contrast material flowing superiorly and inferiorly in the epidural space. No vascular or intrathecal uptake is observed. At this point, using loss of resistance technique with saline and air, the epidural space was entered. This was confirmed following negative aspiration with injection of approximately 1.5 cc of Isovue 200, showing excellent epidural flow without vascular or intrathecal uptake. At this point, 1cc of 1% lidocaine solution combined with 3cc or 20mg of dexamethasone and 6mg of betamethasone was injected without incident. The patient tolerated the procedure well without signs or symptoms of complications prior to transfer to the recovery area continued monitoring without incident. The patient was then transferred to the recovery area where they were observed for an appropriate period of time after the injection. The patient reported a VAS score of 6 prior to the procedure and a post- procedure VAS of 0. POST OP INSTRUCTIONS The patient was provided a Pain Log to continue to record their response to the target-specific procedure prior to follow-up visit with their referring physician. Additionally, specific post-injection care instructions and a contact number to our office were provided if concerns arise regarding possible complications associated with the procedure are suspected.
== END 2022-09-30 12:50 | disposition home or self-care (01) ==
LOC: RAD 10:56
PROVIDERS: PCP Student in an Organized Health Care Education/Training Program; Referring Provider Physical Medicine & Rehabilitation; Visit Provider Physical Medicine & Rehabilitation
DX: M51.16 Intervertebral disc disorders with radiculopathy, lumbar region (principal); M48.061 Spinal stenosis, lumbar region without neurogenic claudication
CPT/HCPCS: 62323; 99152; J0702; J1100; J2250; J3490

== ENCOUNTER 2023-01-20 10:07 | Outpatient (CLI) | payer MEDICARE, SELFPAY ==
[2023-01-20] VITALS (8 sets, daily range): BP systolic 121–216; BP diastolic 58–96; PULSE 55–76; RESP 16–22; TEMP 36.1; O2SAT 96–100
[2023-01-20] MEDS: BETAMETHASONE 30 MG/5 ML MDV 6 MG INJ (12:06)
[2023-01-20] MEDS: MIDAZOLAM 2 MG/2 ML VIAL IV (12:06)
[2023-01-20] MEDS: IOPAMIDOL 15 ML VIAL 3 ML INJ (12:07)
[2023-01-20] MEDS: BUPIVACAINE 0.5% (PF) 10 ML VIAL 2 ML INJ (12:07)
[2023-01-20] MEDS: DEXAMETHASONE 10 MG/ML VIAL INJ (12:07)
--- NOTE | 2023-01-20 12:17 | P.PCN_ITS ---
Date/Time/Diagnoses Date of procedure: 01/20/23 Time of procedure: 12:17 Pre-procedure diagnosis: 1. FORAMINAL STENOSIS WITH LE SYMPTOMS Post-procedure diagnosis: same Procedure Notes Procedure: 1. FLUOROSCOPICALLY GUIDED CONTRAST CONTROLLED TRANSFORAMINAL EPIDURAL STEROID INJECTION - RIGHT L3/4 TFESI Indications: Mandi is referred by Dr. Valerio for treatment of Foraminal Stenosis with right LE Symptoms Physician: Rashad Trammell Total Fluoroscopy time (seconds): 9 Total sedation minutes: 10 Complications: none Procedure in detail & Post-procedure care: FINDINGS Foraminal Nerve Root Compression secondary to disc disease and facet hypertrophy DESCRIPTION OF PROCEDURE Following review of allergy and review of potential side effects and complications, including, but not necessarily limited to, infection, allergic reaction, local tissue breakdown, stroke, temporary or permanent nerve injury, paralysis, and possible , the patient indicated that the patient understood and agreed to proceed. An informed consent document was signed by the patient, witnessed by a nurse, and placed in the patient's chart. Additionally, other treatment options including medications, modalities, and physical therapy were reviewed with the patient. After review of previous anaesthesic history and IV conscious sedation the patient was deemed safe to proceed with today?s procedure with IV conscious sedation as ASA class II designation. Safety time-out was performed to confirm patient ID, procedure to be performed and site of procedure. IV sedation was accomplished with a combination of 2mg of Versed was administered by the RN after DO order, titrated to patient comfort during the course of the procedure while the patient remained responsive to all verbal commands In the prone position following sterile prep and drape of the lumbar region, the right L3/4 posterior neuroforamen was identified fluoroscopically. The skin was anesthetized via a 25-gauge 1.5-inch needle with 1% lidocaine solution. At this point, a 25-gauge 3.5-inch spinal needle was atraumatically introduced and advanced under fluoroscopic guidance through the posterior right L3/4 neuroforamen to approximately the anterior aspect of the canal. Depth was confirmed on lateral view. Following negative aspiration, injection of approximately 1.5 cc of Isovue 200 under live fluoroscopy in the AP view confi rmed excellent flow along the nerve root, into the epidural space without vascular or intrathecal uptake observed Radiological data, including multiple fluoroscopic views of the lumbosacral spine, reveal a spinal needle at the right L3/4 posterior neuroforamen. Subsequent views show flow of contrast material flowing superiorly and inferiorly along the nerve root confirming epidural flow. Subsequently, a test dose of 1.5 cc of 1% lidocaine solution was administered and patient was observed for two minutes for signs or symptoms of complications, including abdominal pain, shortness of breath, bilateral upper or lower extremity weakness, nausea and vomiting, prior to steroid injection. At this point, a total of 1cc or 10mg of dexamethasone and 6mg of betamethasone was injected without incident. The patient tolerated the procedure well without signs or symptoms of complications prior to transfer to the recovery area continued monitoring without incident. The patient was then transferred to the recovery area where they were observed for an appropriate time after the injection. The patient reported a VAS score of 7 prior to the procedure and a post-procedure VAS of 1. POST OP INSTRUCTIONS The patient was provided a Pain Log to continue to record their response to the target-specific procedure prior to follow-up visit with their referring phys ician. Additionally, specific post-injection care instructions and a contact number to our office were provided if concerns arise regarding possible complications associated with the procedure are suspected.
--- NOTE | 2023-01-20 12:19 | DI.RAD.S_ITS ---
PROCEDURE: PAIN L/S TRANSFORAMINAL INJECT INDICATIONS: SPONDYLOSIS COMPARISON: [facility], , PAIN L/S TRANSFORAMINAL INJECT, 08/14/2019, 10:26. FINDINGS: Fluoroscopic spot filming was performed to verify placement of spinal needles at the right L3-L4 neural foramen level(s), as labeled on the films. Appropriate location(s) of the needle tip(s) was confirmed by injection of iodinated contrast. IMPRESSION: [place] needle and right L3-L4 neural foramen for transforaminal epidural steroid injection. Dictated by: Dagmar Lagunas MD, PhD on 01/20/2023 at 13:09 Approved by: Dagmar Lagunas MD, PhD on 01/20/2023 at 13:09
== END 2023-01-20 12:38 | disposition home or self-care (01) ==
LOC: RAD 10:08
PROVIDERS: PCP Student in an Organized Health Care Education/Training Program; Referring Provider Physical Medicine & Rehabilitation; Visit Provider Physical Medicine & Rehabilitation
DX: M48.061 Spinal stenosis, lumbar region without neurogenic claudication (principal); M51.16 Intervertebral disc disorders with radiculopathy, lumbar region; M47.26 Other spondylosis with radiculopathy, lumbar region
CPT/HCPCS: 64483; 99152; J0702; J1100; J2250

== ENCOUNTER 2023-07-12 09:40 | Outpatient (CLI) | payer MEDICARE, SELFPAY ==
[2023-07-12] VITALS (8 sets, daily range): BP systolic 119–208; BP diastolic 60–98; PULSE 60–95; RESP 13–21; TEMP 36.3; O2SAT 93–100
--- NOTE | 2023-07-12 10:45 | DI.RAD.S_ITS ---
PROCEDURE: PAIN L/S TRANSFORAMINAL INJECT INDICATIONS: STENOSIS COMPARISON: [facility], , PAIN L/S TRANSFORAMINAL INJECT, 01/20/2023, 12:04. FINDINGS: Fluoroscopic spot filming was performed to verify placement of a spinal needle at the L3-L4 level, as labeled on the films. Appropriate location of the needle tip was confirmed by injection of iodinated contrast. IMPRESSION: Intraprocedural examination within normal limits. Dictated by: Miguelito Rodríguez M.D. on 07/12/2023 at 15:40 Approved by: Miguelito Rodríguez M.D. on 07/12/2023 at 15:41
[2023-07-12] MEDS: MIDAZOLAM 2 MG/2 ML VIAL IV (11:27)
[2023-07-12] MEDS: iopamidoL 15 ML VIAL 3 ML INJ (11:35)
[2023-07-12] MEDS: BETAMETHASONE 30 MG/5 ML MDV 6 MG INJ (11:36)
[2023-07-12] MEDS: BUPIVACAINE 0.25% (PF) VIAL 2 ML INJ (11:36)
[2023-07-12] MEDS: DEXAMETHASONE 10 MG/ML VIAL INJ (11:36)
--- NOTE | 2023-07-12 11:42 | P.PCN_ITS ---
Date/Time/Diagnoses Date of procedure: 07/12/23 Time of procedure: 11:42 Pre-procedure diagnosis: 1. FORAMINAL STENOSIS WITH LE SYMPTOMS Post-procedure diagnosis: same Procedure Notes Procedure: 1. FLUOROSCOPICALLY GUIDED CONTRAST CONTROLLED TRANSFORAMINAL EPIDURAL STEROID INJECTION - RIGHT L3/4 TFESI Indications: Mandi is referred by Dr. Valerio for treatment of Foraminal Stenosis with right LE Symptoms Physician: Rashad Trammell Total Fluoroscopy time (seconds): 10 Total sedation minutes: 10 Complications: none Procedure in detail & Post-procedure care: FINDINGS Foraminal Nerve Root Compression secondary to disc disease and facet hypertrophy DESCRIPTION OF PROCEDURE Following review of allergy and review of potential side effects and complications, including, but not necessarily limited to, infection, allergic reaction, local tissue breakdown, stroke, temporary or permanent nerve injury, paralysis, and possible , the patient indicated that the patient understood and agreed to proceed. An informed consent document was signed by the patient, witnessed by a nurse, and placed in the patient's chart. Additionally, other treatment options including medications, modalities, and physical therapy were reviewed with the patient. After review of previous anaesthesic history and IV conscious sedation the patient was deemed safe to proceed with today?s procedure with IV conscious sedation as ASA class II designation. Safety time-out was performed to confirm patient ID, procedure to be performed and site of procedure. IV sedation was accomplished with a combination of 2mg of Versed was administered by the RN after DO order, titrated to patient comfort during the course of the procedure while the patient remained responsive to all verbal commands In the prone position following sterile prep and drape of the lumbar region, the right L3/4 posterior neuroforamen was identified fluoroscopically. The skin was anesthetized via a 25-gauge 1.5-inch needle with 1% lidocaine solution. At this point, a 25-gauge 3.5-inch spinal needle was atraumatically introduced and advanced under fluoroscopic guidance through the posterior right L3/4 neuroforamen to approximately the anterior aspect of the canal. Depth was confirmed on lateral view. Following negative aspiration, injection of approximately 1.5 cc of Isovue 200 under live fluoroscopy in the AP view conf irmed excellent flow along the nerve root, into the epidural space without vascular or intrathecal uptake observed Radiological data, including multiple fluoroscopic views of the lumbosacral spine, reveal a spinal needle at the right L3/4 posterior neuroforamen. Subsequent views show flow of contrast material flowing superiorly and inferiorly along the nerve root confirming epidural flow. Subsequently, a test dose of 1.5 cc of 1% lidocaine solution was administered and patient was observed for two minutes for signs or symptoms of complications, including abdominal pain, shortness of breath, bilateral upper or lower extremity weakness, nausea and vomiting, prior to steroid injection. At this point, a total of 2cc or 10mg of dexamethasone and 6mg of betamethasone was injected without incident. The patient tolerated the procedure well without signs or symptoms of complications prior to transfer to the recovery area continued monitoring without incident. The patient was then transferred to the recovery area where they were observed for an appropriate time after the injection. The patient reported a VAS score of 7 prior to the procedure and a post-procedure VAS of 0. POST OP INSTRUCTIONS The patient was provided a Pain Log to continue to record their response to the target-specific procedure prior to follow-up visit with their referring phy sician. Additionally, specific post-injection care instructions and a contact number to our office were provided if concerns arise regarding possible complications associated with the procedure are suspected.
== END 2023-07-12 12:04 | disposition home or self-care (01) ==
LOC: RAD 09:41
PROVIDERS: PCP Student in an Organized Health Care Education/Training Program; Referring Provider Physical Medicine & Rehabilitation; Visit Provider Physical Medicine & Rehabilitation
DX: M48.061 Spinal stenosis, lumbar region without neurogenic claudication (principal); M51.16 Intervertebral disc disorders with radiculopathy, lumbar region; M47.26 Other spondylosis with radiculopathy, lumbar region
CPT/HCPCS: 64483; 99152; J0702; J1100; J2250; J3490